=== PATIENT | male | born 1980 | race Two or more races ===

== ENCOUNTER 2021-06-01 13:55 | Emergency (ER) | payer SELFPAY ==
[~2021-06-01] VITALS: Ht 177.8 cm; Wt 98.0 kg
--- NOTE | 2021-06-01 13:58 | NUR ---
SENT TO ER BED 1. [id number] C/O L SIDED CHEST PAIN, NUMBNESS TO RUE X TODAY WHILE DRIVING ASPIRIN 324 AND NITRO X 2 GIVEN W/ MINIMAL RELIEF. PT STATED HIS PAIN IS 8/10 AND RADIATED TO HIS RIGHT SHOULDER. DENIES CARDIAC HISTORY BUT STATED HIS MOM HAS CARDIAC HISTORY. PT ATTACHED TO MONITOR. AWAITING MD BENDER
--- NOTE | 2021-06-01 14:06 | NUR ---
IV ESTABLISHED R AC 20G. LABS DRAWN AND COLLECTED. CONVERTED TO SALINE LOCK
[2021-06-01] MEDS ORDERED: IV NS 0.9% 1,000 ML BAG IV ONE (14:30)
[2021-06-01] MEDS ORDERED: ONDANSETRON HCL/PF 4 MG/2 ML VIAL ONE (14:30)
[2021-06-01] MEDS ORDERED: ONDANSETRON HCL/PF 4 MG/2 ML VIAL IVP ONE (14:30)
[2021-06-01 14:57] LABS: BASOPHILS % (AUTO) 0.6 % (0.0-2.0); EOSINOPHILS % (AUTO) 2.1 % (0.0-6.0); HEMATOCRIT 40 % (39-51); HEMOGLOBIN 13.8 g/dL (13.5-17.5); LYMPHOCYTES # (AUTO) 2.4 K/uL (0.8-4.8); LYMPHOCYTES % (AUTO) 38.2 % (20.0-44.0); MEAN CORPUSCULAR HGB CONC 34 g/dl (31.0-36.0); MEAN CORPUSCULAR VOLUME 84 fL (80-96); MONOCYTES # (AUTO) 0.4 K/uL (0.1-1.30); MONOCYTES % (AUTO) 6.3 % (2.0-12.0); NEUTROPHILS # (AUTO) 3.3 K/uL (1.8-8.9); NEUTROPHILS % (AUTO) 52.8 % (43.0-81.0); PLATELET COUNT (AUTO) 256 K/uL (150-450); RED BLOOD CELL COUNT(AUTO) 4.79 MIL/uL (4.5-6.0); WHITE BLOOD COUNT (AUTO) 6.2 K/uL (4.3-11.0)
[2021-06-01 15:07] LABS: CALCIUM, SERUM 8.9 mg/dL (8.5-10.1); CARBON DIOXIDE 27 mmol/L (21-32); CHLORIDE 103 mmol/L (98-107); CREATININE 0.9 mg/dL (0.6-1.3); GLUCOSE 100 mg/dL (74-106); POTASSIUM 3.5 mmol/L (3.5-5.1); SODIUM SERUM 136 mmol/L (136-145); UREA NITROGEN, BLOOD 17 mg/dL (7-18)
--- NOTE | 2021-06-01 15:25 | NUR ---
FISHER EEL AT BEDSIDE FOR BLOOD DRAW
[2021-06-01 16:28] LABS: ALCOHOL, BLOOD < 3 mg/dL (0-0)
[2021-06-01 16:38] LABS: THYROID STIMULATING HORMONE 0.674 uIU/mL (0.358-3.74)
[2021-06-01] MEDS ORDERED: ACETAMINOPHEN 325 MG TABLET ONE (16:57)
[2021-06-01] MEDS ORDERED: ACETAMINOPHEN 325 MG TABLET PO ONE (17:00)
--- NOTE | 2021-06-01 20:37 | NUR ---
FOLLOWED UP WITH LAB REGARDING TROPONIN RESULTS
--- NOTE | 2021-06-01 21:54 | NUR ---
Patient discharged to home in stable condition. Written and verbal after care instructions given. Patient verbalizes understanding of instruction.IV line disctontinued and patient ambulated out of ER with steady gait.
[2021-06-01 21:56] VITALS: BP 127/76
--- NOTE | 2021-06-08 11:29 | NUR ---
RAGHU PRESCOTT RECIEVED 1,000 MOL NORMAL SALINE ON 06/01/2021. STARTED AT 1427 ENDED AT 1527 ON R AC 20G.
== END 2021-06-01 21:56 | disposition home or self-care (01) ==
LOC: ER 14:03
DX: R07.89 Other chest pain (principal); R42 Dizziness and giddiness
CPT/HCPCS: 36415; 71045; 80048; 80307; 80320; 84443; 84484 ×2; 85025; 93005; 96361; 96374; 99285; J2405; J7030; G0480